=== PATIENT | female | born 1940 | race American Indian/Alaskan Native ===

== ENCOUNTER 2019-05-24 11:34 | Outpatient (CLI) | payer MEDICARE ==
--- NOTE | 2019-05-24 13:33 | XRay Report ---
CHEST 2 VIEWS INDICATION: BREAST CA/FOLLOW UP. COMPARISON: None available FINDINGS: Support devices: None. Heart: Within normal limits. Lungs/pleura: No acute air space or interstitial disease. No pneumothorax. No pulmonary nodule or ma ss is identified. Additional findings: Eventration of the anterior right hemidiaphragm is noted. Right mastectomy das es are suspected. IMPRESSION: Unremarkable chest films. No evidence for metastatic disease on chest x-ray. Signer Name: Cal Garvey Jr, MD Signed: 05/24/2019 1:28 PM Workstation Name: [id number]
--- NOTE | 2019-05-27 15:53 | Mammography Report ---
BONE DEXA CLINICAL: Postmenopausal. TECHNIQUE: 3 site bone DEXA performed on an Hologic scanner. FINDINGS: The average BMD of the lumbar spine L1-L4 is 1.087g/cm squared with a T score of -0.6 and a Z score o f +2.4. The average total BMD of the left hip is 0.922 g/cm squared with a T score of -0.7and a Z score of +0 .8. The left femoral neck BMD is 0.656 g/cm squared with a T score of -2.1 and a Z score of -0.3. IMPRESSION: 1. WHO classification: Normal with average fracture risk based on spine and total left hip measuremen ts. 2. WHO classification Osteopenia with increased fracture risk based on left femoral neck measurements . RECOMMENDATION: Clinical correlation and routine screening. Definitions: BMD equal bone mineral density T score = BMD related to peak bone mass of young adult ([place] expressed an standard deviation) Z score = age-matched BMD expressed in SD World health organization (WHO) diagnostic criteria Normal T score greater than equal to 1 standard deviation Osteopenia T score between -1 and -2.4 standard deviation Osteoporosis T score -2.5 standard deviation or below. Note: BMD is not the only risk factor for fracture; also consider factors such as the patient's age, risk of falling, previous osteoporotic fracture, family history of osteoporotic fractures, current sm oker and low body weight. Z scores are not calculated if greater than 80 years of age. Signer Name: Terrance Eng MD Signed: 05/27/2019 3:48 PM Workstation Name: [id number]
== END 2019-05-24 11:35 | disposition home or self-care (01) ==
LOC: SPVWC 11:34
PROVIDERS: ATTEND Internal Medicine Hematology & Oncology
DX: C50.411 Malignant neoplasm of upper-outer quadrant of right female breast (principal); M25.50 Pain in unspecified joint; B37.89 Other sites of candidiasis; Z78.0 Asymptomatic menopausal state
CPT/HCPCS: 71046; 77080

== ENCOUNTER 2020-07-15 09:02 | Outpatient (CLI) | payer MEDICARE ==
--- NOTE | 2020-07-15 11:46 | Cat Scan Report ---
CT abdomen pelvis wo con, CT chest wo con INDICATION: MAIN. Endometrial cancer TECHNIQUE: All CT scans at this location are performed using CT dose reduction for ALARA by means of automated e xposure control. COMPARISON: None available. FINDINGS: CT CHEST: Mediastinum, jean paul and axillae appear negative on this noncontrast exam. Right mastectomy with reconst ruction. Mild bronchial wall thickening in both lung bases, with a small, focal area of bronchiectasi s in the left base. No pulmonary nodules. CT ABDOMEN: Liver, spleen and pancreas are negative on this noncontrast study. Kidneys and adrenals appear unrema rkable. Abdominal aorta is normal in size. No retroperitoneal or mesenteric adenopathy. CT PELVIS: Uterus is been resected. Urinary bladder is negative. No pelvic adenopathy. Extensive sigmoid diverti culosis. Diffuse osteopenia, with a slightly mottled appearance of the bones, but no definite skeletal metasta ses. IMPRESSION: 1. No evidence of metastasis. Signer Name: Coleman Trejo MD Signed: 07/15/2020 11:41 AM Workstation Name: [id number]
--- NOTE | 2020-07-15 13:00 | Nuclear Medicine Report ---
NM bone scan whole body INDICATION / CLINICAL INFORMATION: PAIN IN JOINT. TECHNIQUE: Dose / Agent / Route: 26.2 mCi technetium MDP, IV COMPARISON: CT done earlier today. FINDINGS: Focal uptake in both shoulders, left elbow, both wrists and both knees, with minimal uptake in the tripp mbar spine. Appearance is consistent with hypertrophic degenerative change. No evidence of metastasis . IMPRESSION: 1. Negative study. No evidence of metastatic disease. Signer Name: Coleman Trejo MD Signed: 07/15/2020 12:56 PM Workstation Name: [id number]
== END 2020-07-15 09:03 | disposition home or self-care (01) ==
LOC: NM 09:02
PROVIDERS: ATTEND Internal Medicine Hematology & Oncology
DX: C50.411 Malignant neoplasm of upper-outer quadrant of right female breast (principal); B37.89 Other sites of candidiasis; N95.1 Menopausal and female climacteric states; M25.50 Pain in unspecified joint; J47.9 Bronchiectasis, uncomplicated; Z90.11 Acquired absence of right breast and nipple
CPT/HCPCS: 71250; 74176; 78306; A9503

== ENCOUNTER 2021-08-05 10:32 | Outpatient (CLI) | payer MEDICARE ==
--- NOTE | 2021-08-05 13:52 | PET Report ---
PET CT Indication: Endometrial cancer restaging Technique: A total of 13.3 mCi F-18 FDG injected IV per protocol at 11:06 AM with a scan time of 12:0 6 PM on the same day. CT was utilized for dose attenuation and anatomic localization. Fasting blood g lucose is 72 mg/dL.. The scan occurred from the skull base to the upper thighs. Comparison: 07/15/2020 Findings: Postoperative change consistent with right-sided mastectomy. There appears to be abnormal m ucosal enhancement transmural thickening identified involving the body and antrum of the stomach. No definite increase associated uptake is identified in this region. No abnormal radiotracer uptake is i dentified within the head/neck, chest, abdomen or pelvis. There is expected GI and excretion of ra diotracer. No abnormal osseous uptake is appreciated. IMPRESSION: No significant abnormal hypermetabolic activity identified within the chest abdomen or pe lvis, as above. Of note, the wall of the stomach especially the distal body and gastric antrum appear abnormally thickened. This appears to have progressed from 07/15/2020. Upper GI/endoscopy may be usef ul for further evaluation. Signer Name: Jesus Alberto Amaral MD Signed: 08/05/2021 1:46 PM Workstation Name: [id number]
== END 2021-08-05 10:33 | disposition home or self-care (01) ==
LOC: PET 10:32
PROVIDERS: ATTEND Internal Medicine Hematology & Oncology
DX: C50.411 Malignant neoplasm of upper-outer quadrant of right female breast (principal)
CPT/HCPCS: 78815; 82962; A9552